=== PATIENT | female | born 1945 | race Caucasian/White ===

== ENCOUNTER 2018-03-03 03:15 | Inpatient (IN) | payer OTHER, BC ==
[~2018-03-03] VITALS: Ht 157.5 cm; Wt 124.3 kg
[2018-03-03 04:15] VITALS: BP 167/39
[2018-03-03] MEDS ORDERED: NORVASC5 M1 PO (04:57)
[2018-03-03] MEDS ORDERED: LOSARTAN POTAS100 MG PO (04:58)
[2018-03-03] MEDS ORDERED: PAXIL10 MG PO (04:59)
[2018-03-03] MEDS ORDERED: SIMVASTATIN40 MG PO (04:59)
[2018-03-03] MEDS ORDERED: IRON325 PO (05:00)
[2018-03-03] MEDS ORDERED: DEMADEX20 MG PO (05:01)
[2018-03-03] MEDS ORDERED: NEURONTIN300 MG PO (05:02)
[2018-03-03] MEDS ORDERED: ROCALTROL0.5 MCG PO (05:02)
[2018-03-03] MEDS ORDERED: ANTACID650 MG PO (05:04)
[2018-03-03] MEDS ORDERED: ADULT LOW DOSE81 MG PO (05:07)
[2018-03-03 07:53] LABS: HEMATOCRIT 29.3 % (37.0-47.0); HEMOGLOBIN 9.4 gm/dL (12.0-15.0); MCH 30.3 pg (26.0-34.0); MCV 94.8 fL (80.0-100.0); RBC 3.09 mil/uL (4.20-5.00); RDW 14.4 % (10.5-14.5); WBC 10.2 thou/uL (4.0-11.0)
--- NOTE | 2018-03-03 08:00 | NUR ---
PT WAS A DIRECT ADMIT FROM [facility] WITH SOA, PT ARRIVE WITH EMS, ADMISSION ASSESSMENT AND EDUCATION COMPLETED, METAL BALER NOTIFIED ABOUT PT'S ARRIVAL, NO SIGN OF DISTRESS NOTED IN PT, PT IS STABLE, PT IS ON 2L NC, DENIES ANY FURTHER NEEDS AT THIS TIME.
[2018-03-03 08:11] LABS: CREATININE 5.7 mg/dL (0.6-1.0); MAGNESIUM 1.9 mg/dL (1.8-2.4); PHOSPHORUS 4.1 mg/dL (2.5-4.9); POTASSIUM 4.8 mmol/L (3.5-5.1); TROPONIN-I 0.1 ng/mL (<0.06)
[2018-03-03 09:10] VITALS: BP 127/45
[2018-03-03 11:35] VITALS: BP 125/52
--- NOTE | 2018-03-03 12:44 | 2DMMODE ---
[facility] [address] [place] [address] 2 D/M-MODE ECHOCARDIOGRAM Name: LAURA MEJIA Room #: 206-P ADM IN M.R.#: [id number] Admission: 03/03/18 Attend Phys: Lola Negro Discharge: Date of : 43 Date of Service: 03/03/18 1244 Report #: [id number] THIS REPORT FOR: //name// APPROVED REPORT Study performed: 03/03/2018 08:38:24 EXAM: Comprehensive 2D, Doppler, and color-flow Echocardiogram Patient Location: Bedside Room #: 206 Status: on-call BSA: 2.19 HR: 80 bpm BP: 151/67 mmHg Rhythm: NSR Other Information Study Quality: Adequate Technically limited study due to limited mobility and morbid obesity. Indications Fluid overload, rule out CHF, respiratory failure, HTN 2D Dimensions RVDd: 44.34 mm IVSd: 11.32 (7-11mm) LVOT Diam: 21.06 (18-24mm) LVDd: 53.64 mm PWd: 10.96 (7-11mm) Ascending Ao: 36.17 (22-36mm) LVDs: 39.60 (25-40mm) Aortic Root: 36.80 mm Volumes Left Atrial Volume (Systole) Single Plane 4CH: 88.74 mL Single Plane 2CH: 99.57 mL Aortic Valve AoV Peak Clayton.: 2.38 m/s AO Peak Gr.: 22.70 mmHg LVOT Max P.37 mmHg AO Mean Gr.: 13.13 mmHg AO V2 Mean: 1.73 m/s LVOT Max V: 1.36 m/s AO V2 VTI: 48.66 cm ANGELA Vmax: 1.99 cm2 Mitral Valve [facility] [address] [place] [address] 2 D/M-MODE ECHOCARDIOGRAM Name: LAURA MEJIA Room #: 206-P [facility] IN M.R.#: [id number] Admission: 03/03/18 Attend Phys: Lola Negro Discharge: Date of : 43 Date of Service: 03/03/18 1244 Report #: [id number] E/A Ratio: 0.8 MV Decel. Time: 245.83 ms MV E Max Clayton.: 1.22 m/s MV A Clayton.: 1.48 m/s MV PHT: 71.29 ms IVRT: 41.52 ms Pulmonary Valve PV Peak Clayton.: 1.88 m/s PV Peak Gr.: 14.14 mmHg Pulmonary Vein P Vein S: 0.71 m/s P Vein A: 0.35 m/s P Vein D: 0.55 m/s P Vein A Dur.: 143.0 msec P Vein S/D Ratio: 1.29 Tricuspid Valve TR Peak Clayton.: 3.06 m/s RAP Estimate: 5.00 mmHg TR Peak Gr.: 37.42 mmHg PA Pressure: 42.00 mmHg Left Ventricle The left ventricle is normal size. Regional wall motion is not well visualized but grossly normal. There is normal left ventricular wall thickness. Left ventricular systolic function is normal. LVEF is 60%. Mild diastolic dysfunction is present (impaired relaxation pattern). Right Ventricle The right ventricle is normal size. The right ventricular systolic function is normal. Atria Left atrium is mildly dilated. The right atrium size is normal. Aortic Valve The aortic valve is normal in structure. No aortic regurgitation is present. There is no aortic valvular stenosis. Mitral Valve The mitral valve is normal in structure. There is no mitral valve regurgitation noted. No evidence of mitral valve stenosis. Tricuspid Valve The tricuspid valve is normal in structure. Mild tricuspid regurgitation. Estimated PAP is 40-45mmHg. [facility] [address] [place] [address] 2 D/M-MODE ECHOCARDIOGRAM Name: LAURA MEJIA Room #: 206-P [facility] IN ..#: [id number] Admission: 03/03/18 Attend Phys: Lola Negro Discharge: Date of : 43 Date of Service: 03/03/18 1244 Report #: [id number] Pulmonic Valve The pulmonary valve is normal in structure. There is no pulmonic valvular regurgitation. Great Vessels The aortic root is normal in size. The ascending aorta is normal in size. IVC is normal in size and collapses >50% with inspiration. Pericardium There is no pericardial effusion. <Conclusion> Left ventricular systolic function is normal. Regional wall motion is not well visualized but grossly normal. LVEF is 60%.Mild diastolic dysfunction The aortic valve is normal in structure. No aortic regurgitation or stenosis The mitral valve is normal in structure. No mitral valve regurgitation. Mild tricuspid regurgitation. Estimated pulmonary artery pressure of 40-45mmHg. There is no pericardial effusion. <ELECTRONICALLY SIGNED> By: Patric Bourne MD, FACC 03/03/18 1244 1244 1244 Patric Bourne MD, FACC /INF
[2018-03-03 16:21] VITALS: BP 116/46
[2018-03-03 19:40] VITALS: BP 137/38
[2018-03-04 00:05] LABS: GLYCOHEMOGLOBIN (HGB A1C) 5.6 % (4.8-5.6)
[2018-03-04 00:13] VITALS: BP 127/51
[2018-03-04 01:05] LABS: URINE BILIRUBIN NEGATIVE (Negative); URINE CLARITY CLEAR; URINE COLOR YELLOW; URINE GLUCOSE-RANDOM* NEGATIVE (Negative); URINE KETONES NEGATIVE (Negative); URINE PROTEIN (DIPSTICK) 1+ (Negative)
[2018-03-04 01:06] LABS: URINE BLOOD NEGATIVE (Negative); URINE LEUKOCYTES-REFLEX NEGATIVE (Negative); URINE NITRITE-REFLEX NEGATIVE (Negative); URINE UROBILINOGEN 0.2 E.U./dl (0.2-1.0)
[2018-03-04 01:11] LABS: CASTS None Seen /LPF (None Seen); MUCUS 0-3 Light strn/LPF (None Seen); SQUAMOUS 0-3 Few /LPF (0-3)
[2018-03-04 01:12] LABS: BACTERIA-REFLEX None Seen /HPF (None Seen); CRYSTALS None Seen /LPF (None Seen); URINE RBC None Seen /HPF (0-2); URINE WBC-REFLEX None Seen /HPF (0-5)
--- NOTE | 2018-03-04 04:25 | NUR ---
ADMT FROM [facility] . PT SLEPT THROUGH THE NIGHT. NO N/V/D NOTICED. DENIES CHEST PAIN, BUT COURSE BREATH SOUNDS AND WHEEZES NOTED BUT NO C/O SOA. RECEIVING RT TREATMENTS. OTHER ASSESSMENTS DOCUMENTED. WILL CONTINUE TO FOLLOW POC.
[2018-03-04 04:49] VITALS: BP 119/44
[2018-03-04 05:15] LABS: ALBUMIN 2.7 g/dL (3.4-5.0); CALCIUM 9.1 mg/dL (8.5-10.1); PHOSPHORUS 3.3 mg/dL (2.5-4.9); POTASSIUM 4.4 mmol/L (3.5-5.1)
[2018-03-04 05:16] LABS: CREATININE 4.5 mg/dL (0.6-1.0)
[2018-03-04 07:38] VITALS: BP 89/56
[2018-03-04 12:20] VITALS: BP 136/57
--- NOTE | 2018-03-04 15:28 | NUR ---
PT IS ALERT AND ORIENTED X4. PT HAD HEMODIALYSIS TODAY. RIGHT ARM FISTULA WITH A BRUIT AND THRILL PRESENT. LUNGS ARE COARSE. RESPIRTORY DOES BREATHING TREATMENTS. ON A RENAL DIET. SPOUSE AT BEDSIDE FOR SUPPORT . UP TO THE SHOWER TODAY. ACTIVE BOWEL SOUNDS. ABDOMEN IS SOFT AND ROUND. DENIES ANY PAIN. NORMAL SINUS RHYTHM ON THE PETROLEUM REFINERY LABORER WILL CONTINUE TO ASSESS AND MONITOR PER NURSING.
[2018-03-04 17:40] VITALS: BP 98/42
[2018-03-04 20:42] VITALS: BP 124/61
--- NOTE | 2018-03-04 22:25 | EKG ---
[address] [address] ELECTROCARDIOGRAM REPORT Name: LAURA MEJIA Room #: 206- ADM IN M.R.#: [id number] Admission: 03/03/18 Attend Phys: Lola Lee Discharge: Date of : 43 Report #: [id number] THIS REPORT FOR: //name// [facility] Test Date: 2018-03-04 Test Time: 18:34:46 Pat Name: LAURA MEJIA Department: Room: 206 Gender: F Crankshaft Straightener: chilo : 1945 Requested By: Mukesh Ng Order Number: [id number] MD: Riki Murrieta Measurements Intervals [place] Rate: 116 P: [place]: QRS: -8 QRSD: 89 T: 126 QT: 329 QTc: 458 Interpretive Statements Atrial fibrillation LVH with secondary repolarization abnormality No previous ECG available for comparison Electronically Signed On 03-04-2018 22:25:14 BONE DRIER OPERATOR by Riki Murrieta [email or web address] <ELECTRONICALLY SIGNED> By: Riki Murrieta MD 03/04/18 2225 D: 12/1833 33 Riki Murrieta MD /ERON
[2018-03-05 05:12] VITALS: BP 124/95
--- NOTE | 2018-03-05 05:51 | NUR ---
ASSESMENT DOCUMENTED. DENIES ANY PAIN. RIGHT ARM FSTULA WITH GOOD THRILL AND BRUIT. AFIB ON THE MONITOR. ON NPO STARTING 12 MN FOR THE S TRESS TEST. FF UP POC.
[2018-03-05 08:00] VITALS: BP 146/50
[2018-03-05 09:26] LABS: HEPATITIS B SURFACE AG Negative (Negative)
--- NOTE | 2018-03-05 11:20 | HC ---
[facility] [place] [address] CONSULTATION Name: LAURA MEJIA Room #: 206-P ADM IN M.R.#: [id number] Admission: 03/03/18 Attend Phys: Lola Lee Discharge: Date of : 43 Report #: [id number] THIS REPORT FOR: //name// CC: Micky Camarena Lola Lee DATE OF SERVICE: 03/03/2018 NEPHROLOGY CONSULTATION ATTENDING PHYSICIAN: Lola Lee MD. REASON FOR CONSULTATION: Chronic kidney disease and congestive heart failure. HISTORY OF PRESENT ILLNESS: This is a 72-year-old patient with longstanding slowly progressive CKD and a solitary kidney, followed in our office by Dr. Yoder. She has a right arm AV fistula and has been monitored closely for initiation of dialysis. She developed shortness of breath and congestive heart failure, presented to [facility]. Creatinine was 6. She was transferred to this hospital for initiation of dialysis. PAST MEDICAL HISTORY: She has had some hypertension, but no diabetes. There has been some trouble with volume overload as well as obesity, history of obstructive sleep apnea. HOME MEDICATIONS: Include amlodipine 5 mg daily, losartan 100 mg daily, Paxil 20 mg daily, simvastatin 40 mg b.i.d., iron, torsemide 10 mg daily, calcitriol 0.5 mcg daily, gabapentin 300 mg b.i.d., sodium bicarbonate 650 mg b.i.d., aspirin 81 mg daily. PAST SURGICAL HISTORY: Includes previous hysterectomy, cholecystectomy, bilateral total knee replacements. FAMILY HISTORY: Positive for heart disease in her father, colon cancer and lung disease in the mother. SOCIAL HISTORY: Includes a history of ongoing, but very light cigarette smoking with a very long history of same. REVIEW OF SYSTEMS: GENERAL: She presented with URI a few days ago. EYES: Vision has been okay. ENT: Hearing okay, swallows okay. Denies mouth sores. ENDOCRINE: Negative for diabetes or thyroid disease. RESPIRATORY: She is somewhat short-winded with a bit of orthopnea. No pleuritic pain or hemoptysis. [facility] [address] [place] [address] CONSULTATION Name: JACKIELAURA SHAWN Room #: 206-P [facility] IN M.R.#: [id number] Admission: 03/03/18 Attend Phys: Lola Lee Discharge: Date of : 43 Report #: [id number] CARDIAC: No chest pain, angina or palpitations. GASTROINTESTINAL: No nausea, vomiting, diarrhea. GENITOURINARY: Reasonably good stream without dysuria, hematuria or history of stones. NEUROLOGIC: No seizure, syncope, or stroke. Does have some symptoms of peripheral neuropathy. MUSCULOSKELETAL: She has had the knee replacements. PHYSICAL EXAMINATION: GENERAL: This is quite an overweight woman, little bit easily short-winded even with conversation. SKIN: Otherwise, unremarkable. SKELETAL: Well-developed, well-nourished. HEENT: Extraocular movements are full. Vision intact. Hearing intact. Mucous membranes moist. NECK: Supple. CHEST: Shows bilateral crackles at the bases. HEART: Regular without rubs or gallops. ABDOMEN: Soft and nontender, rather obese. EXTREMITIES: Show no peripheral edema. NEUROLOGIC: Grossly intact. LABORATORY DATA: Hemoglobin 9.4. Sodium 138, potassium 4.8, chloride 106, bicarbonate 22, BUN 60, creatinine 5.7. Chest x-ray: Review of records at [facility] suggested congestive heart failure. ASSESSMENT AND PLAN: 1. Chronic kidney disease stage 5 with volume overload. We will initiate chronic dialysis in this patient with gentle treatment over the next couple of days, arranging for outpatient chronic treatments in [place]. 2. Volume overload. 3. Possible URI. 4. History of hypertension. 5. History of obstructive sleep apnea. <ELECTRONICALLY SIGNED> By: Chris Burnham MD 03/05/18 1120 0830 [id number] Chris Burnham MD /nt
[2018-03-05 12:00] VITALS: BP 145/62
[2018-03-05 12:25] LABS: ALBUMIN 2.7 g/dL (3.4-5.0); CALCIUM 9.4 mg/dL (8.5-10.1); CREATININE 4.9 mg/dL (0.6-1.0); PHOSPHORUS 3.9 mg/dL (2.5-4.9); POTASSIUM 4.3 mmol/L (3.5-5.1)
--- NOTE | 2018-03-05 13:10 | NUR ---
met with patient family at bedside. Patient resides at home with spouse all needs on one level 3-4 steps to enter. Patient has a rolator walker at home if needed. She is to begin dialysis. Spouse reports they are going to dialysis clinic in [place] in the hospital dialysis clinic. Patient has her own cpap here in hospital as needed. [email or web address] following for dc planning.
[2018-03-05 16:00] VITALS: BP 126/35
[2018-03-05 20:00] VITALS: BP 136/55
--- NOTE | 2018-03-05 20:00 | NUR ---
Pt alert and oriented this shift. Up in room with assistance PRN. Sinus rhythm. Pt down to nuclear medicine this morning for stress test. at bedside throughout the day. Voiding without difficulty. Report given to RN assuming care. Slow progress toward goals.
--- NOTE | 2018-03-06 03:23 | NUR ---
AOX4, DENIES PAIN. SR TO SR WITH PACS ON THE MONITOR. MAINTAINED ON FALL PRECAUTION, STANDBY X 1. ON BIPAP WITH 3L 02 BLEED IN. RIGHT ARM FISTULA WITH THRILL AND BRUIT. FF UP POC.
[2018-03-06 04:13] LABS: ALBUMIN 2.6 g/dL (3.4-5.0); CALCIUM 9.3 mg/dL (8.5-10.1); CREATININE 5.7 mg/dL (0.6-1.0); MAGNESIUM 1.8 mg/dL (1.8-2.4); PHOSPHORUS 5.8 mg/dL (2.5-4.9); POTASSIUM 4.2 mmol/L (3.5-5.1)
[2018-03-06 04:27] LABS: ABSOLUTE NEUTROPHILS 3.2 thou/uL (1.4-8.2); BASOPHILS 0.9 % (0.0-2.0); EOSINOPHILS 3.5 % (0.0-3.0); HEMATOCRIT 28.4 % (37.0-47.0); HEMOGLOBIN 9.2 gm/dL (12.0-15.0); LYMPHOCYTES 28.3 % (24.0-44.0); MCH 30.5 pg (26.0-34.0); MCHC 32.5 g/dL (28.0-37.0); MCV 93.8 fL (80.0-100.0); MONOCYTES 8.6 % (1.0-8.0); PLATELET COUNT 176 thou/uL (150-400); POLYS 58.7 % (36.0-66.0); RBC 3.03 mil/uL (4.20-5.00); RDW 14.4 % (10.5-14.5); WBC 5.5 thou/uL (4.0-11.0)
[2018-03-06 04:36] VITALS: BP 118/43
[2018-03-06 08:00] VITALS: BP 94/82
[2018-03-06] MEDS ORDERED: COZAAR 50 MG TA50 M1 PO (11:21)
[2018-03-06] MEDS ORDERED: IPRAT-ALBUT 0.5-3 ML INH (11:21)
[2018-03-06] MEDS ORDERED: LEVAQUIN 500 M500 M1 PO (11:21)
[2018-03-06] MEDS ORDERED: MUCINEX600 MG PO (11:21)
[2018-03-06] MEDS ORDERED: DEMADEX 2020 MG/1 TA PO (11:21)
[2018-03-06 11:31] VITALS: BP 94/82
[2018-03-06 11:32] VITALS: BP 94/82
--- NOTE | 2018-03-06 11:50 | NUR ---
IV AND TELE DISOCONTINUED. PT UNDERSTANDS ALL FOLLOW UP ORDERS. WILL DISCHARGE TO HOME VIA PRIVATE VEHICLE.
== END 2018-03-06 12:15 | disposition home or self-care (01) | DRG 871 ==
LOC: PRE 03:15 → 2N 03:41
PROVIDERS: Internal Medicine; Internal Medicine Nephrology; Nurse Practitioner Acute Care; ADMIT Hospitalist
PROC: 5A09357 Assistance with Respiratory Ventilation, Less than 24 Consecutive Hours, Continuous Positive Airway Pressure (ICD-10-PCS; 2018-03-03)
PROC: 5A09357 Assistance with Respiratory Ventilation, Less than 24 Consecutive Hours, Continuous Positive Airway Pressure (ICD-10-PCS; 2018-03-04)
PROC: 5A1D70Z Performance of Urinary Filtration, Intermittent, Less than 6 Hours Per Day (ICD-10-PCS; principal; 2018-03-05)
PROC: 5A1D70Z Performance of Urinary Filtration, Intermittent, Less than 6 Hours Per Day (ICD-10-PCS; 2018-03-06)
DX: A41.9 Sepsis, unspecified organism (principal); J18.9 Pneumonia, unspecified organism; J96.21 Acute and chronic respiratory failure with hypoxia; N18.6 End stage renal disease; I13.2 Hypertensive heart and chronic kidney disease with heart failure and with stage 5 chronic kidney disease, or end stage renal disease; I50.32 Chronic diastolic (congestive) heart failure; Z68.43 Body mass index [BMI] 50.0-59.9, adult; I48.0 Paroxysmal atrial fibrillation; E78.5 Hyperlipidemia, unspecified; E66.01 Morbid (severe) obesity due to excess calories; I27.20 Pulmonary hypertension, unspecified; G47.33 Obstructive sleep apnea (adult) (pediatric); R73.9 Hyperglycemia, unspecified; F17.210 Nicotine dependence, cigarettes, uncomplicated; I73.9 Peripheral vascular disease, unspecified; F32.9 Major depressive disorder, single episode, unspecified; K21.9 Gastro-esophageal reflux disease without esophagitis; J06.9 Acute upper respiratory infection, unspecified; R74.8 Abnormal levels of other serum enzymes; E83.42 Hypomagnesemia; Z96.653 Presence of artificial knee joint, bilateral; Z88.0 Allergy status to penicillin; Z88.6 Allergy status to analgesic agent; Z88.8 Allergy status to other drugs, medicaments and biological substances; Z91.048 Other nonmedicinal substance allergy status; Z90.49 Acquired absence of other specified parts of digestive tract; Z90.710 Acquired absence of both cervix and uterus; Z82.49 Family history of ischemic heart disease and other diseases of the circulatory system; Z80.0 Family history of malignant neoplasm of digestive organs; Z80.1 Family history of malignant neoplasm of trachea, bronchus and lung; Z98.891 History of uterine scar from previous surgery; Z79.82 Long term (current) use of aspirin; Z79.899 Other long term (current) drug therapy
CPT/HCPCS: 10081; 32100

== ENCOUNTER → 2019-11-12 | Outpatient (CLI) | payer OTHER, BC ==
[~2019-11-12] MED LIST: ADULT LOW DOSE81 MG PO; ANTACID650 MG PO; COZAAR 50 MG TA50 M1 PO; DEMADEX 2020 MG/1 TA PO; DEMADEX20 MG PO; IPRAT-ALBUT 0.5-3 ML INH; IRON325 PO; LEVAQUIN 500 M500 M1 PO; LOSARTAN POTAS100 MG PO; MUCINEX600 MG PO; NEURONTIN300 MG PO; NORVASC5 M1 PO; PAXIL10 MG PO; ROCALTROL0.5 MCG PO; SIMVASTATIN40 MG PO
== END ==
LOC: SJCVC 14:17
PROVIDERS: ATTEND Internal Medicine Cardiovascular Disease
DX: R94.31 Abnormal electrocardiogram [ECG] [EKG] (principal); I49.3 Ventricular premature depolarization; G47.33 Obstructive sleep apnea (adult) (pediatric); E78.5 Hyperlipidemia, unspecified; I13.2 Hypertensive heart and chronic kidney disease with heart failure and with stage 5 chronic kidney disease, or end stage renal disease; N18.5 Chronic kidney disease, stage 5; I50.33 Acute on chronic diastolic (congestive) heart failure; I27.20 Pulmonary hypertension, unspecified; F17.210 Nicotine dependence, cigarettes, uncomplicated; Z99.89 Dependence on other enabling machines and devices; Z79.899 Other long term (current) drug therapy

== ENCOUNTER → 2020-11-30 | Outpatient (CLI) | payer OTHER, BC | LOC: SJCVC 15:22 | PROVIDERS: ATTEND Internal Medicine Cardiovascular Disease | DX: G47.33 Obstructive sleep apnea (adult) (pediatric) (principal); E78.5 Hyperlipidemia, unspecified; I50.42 Chronic combined systolic (congestive) and diastolic (congestive) heart failure; I11.0 Hypertensive heart disease with heart failure; N18.5 Chronic kidney disease, stage 5; I27.20 Pulmonary hypertension, unspecified; R06.00 Dyspnea, unspecified; F17.210 Nicotine dependence, cigarettes, uncomplicated; Z79.82 Long term (current) use of aspirin; Z79.899 Other long term (current) drug therapy; Z72.89 Other problems related to lifestyle; Z88.0 Allergy status to penicillin; Z88.8 Allergy status to other drugs, medicaments and biological substances; Z88.5 Allergy status to narcotic agent ==

== ENCOUNTER → 2020-12-17 | Outpatient (CLI) | payer OTHER, BC | LOC: SJCVCIMAG 11:18 | PROVIDERS: ATTEND Internal Medicine Cardiovascular Disease | DX: I08.3 Combined rheumatic disorders of mitral, aortic and tricuspid valves (principal); I50.9 Heart failure, unspecified; I27.20 Pulmonary hypertension, unspecified; R06.00 Dyspnea, unspecified; G47.33 Obstructive sleep apnea (adult) (pediatric); I11.0 Hypertensive heart disease with heart failure ==

== ENCOUNTER → 2020-12-29 | Outpatient (CLI) | payer OTHER, BC | LOC: SJCVC 11:00 | PROVIDERS: ATTEND Nurse Practitioner | DX: I13.0 Hypertensive heart and chronic kidney disease with heart failure and stage 1 through stage 4 chronic kidney disease, or unspecified chronic kidney disease (principal); I50.42 Chronic combined systolic (congestive) and diastolic (congestive) heart failure; N18.5 Chronic kidney disease, stage 5; E78.5 Hyperlipidemia, unspecified; I27.20 Pulmonary hypertension, unspecified; G47.33 Obstructive sleep apnea (adult) (pediatric); K21.9 Gastro-esophageal reflux disease without esophagitis; Z99.89 Dependence on other enabling machines and devices; Z79.82 Long term (current) use of aspirin; Z79.899 Other long term (current) drug therapy; Z88.0 Allergy status to penicillin; Z88.5 Allergy status to narcotic agent; Z88.8 Allergy status to other drugs, medicaments and biological substances; Z87.891 Personal history of nicotine dependence ==

== ENCOUNTER → 2021-04-06 | Outpatient (CLI) | payer OTHER, BC | LOC: SJCVC 14:26 | PROVIDERS: ATTEND Internal Medicine Cardiovascular Disease | DX: R94.31 Abnormal electrocardiogram [ECG] [EKG] (principal); I48.0 Paroxysmal atrial fibrillation; E78.2 Mixed hyperlipidemia; I13.0 Hypertensive heart and chronic kidney disease with heart failure and stage 1 through stage 4 chronic kidney disease, or unspecified chronic kidney disease; I50.42 Chronic combined systolic (congestive) and diastolic (congestive) heart failure; N18.9 Chronic kidney disease, unspecified; G47.33 Obstructive sleep apnea (adult) (pediatric); I27.20 Pulmonary hypertension, unspecified; F17.210 Nicotine dependence, cigarettes, uncomplicated; Z99.89 Dependence on other enabling machines and devices; Z82.49 Family history of ischemic heart disease and other diseases of the circulatory system; Z88.0 Allergy status to penicillin; Z88.8 Allergy status to other drugs, medicaments and biological substances; Z79.82 Long term (current) use of aspirin; Z79.899 Other long term (current) drug therapy ==